=== PATIENT | male | born 1960 | race Caucasian/White ===

== ENCOUNTER 2016-06-28 08:36 | Emergency (ER) | payer OTHER ==
[~2016-06-28] VITALS: Ht 177.8 cm; Wt 118.0 kg
[2016-06-28] MEDS ORDERED: SODIUM CHLORIDE 0.9% 1,000 ML IV ONE (09:13)
[2016-06-28] MEDS ORDERED: SODIUM CHLORIDE FLUSH 10ML SYR IVF ONE (09:30)
[2016-06-28 09:38] LABS: HEMOGLOBIN 14.9 g/dL (13.7-18.0)
[2016-06-28] MEDS ORDERED: OMNIPAQUE 350 MG/ML, 150 ML BOTTLE ONE (10:21)
[2016-06-28 11:31] VITALS: BP 148/79
== END 2016-06-28 11:34 | disposition home or self-care (01) ==
LOC: ED 11:15
DX: K61.1 Rectal abscess (principal); M54.9 Dorsalgia, unspecified; G89.29 Other chronic pain
CPT/HCPCS: 36415; 74177; 80047; 81003; 83605; 85025; 96360; 96361; 99285; J7030; Q9967

== ENCOUNTER → 2016-07-20 | Outpatient (CLI) | payer OTHER ==
[~2016-07-20] MED LIST: FAMO20TA7 PO; LORA10TA3 PO
== END | disposition home or self-care (01) ==
LOC: STAR 08:08
PROVIDERS: ATTEND Surgery
DX: Z01.810 Encounter for preprocedural cardiovascular examination (principal)
CPT/HCPCS: 93005

== ENCOUNTER 2016-07-24 08:16 | Day surgery (SDC) | payer OTHER ==
[~2016-07-24] VITALS: Ht 177.8 cm; Wt 118.0 kg
[~2016-07-24 08:16] MED LIST changes: +FENTANYL PF 250 MCG/5ML ONE; +MIDAZOLAM 1 MG/ML, 2ML ONE
[2016-07-24] MEDS ORDERED: LACTATED RINGERS 1,000 ML IV SCH (08:41)
[2016-07-24 08:42] VITALS: BP 131/86
[2016-07-24] MEDS ORDERED: LIDOCAINE 1%, 2ML SQ PRN (09:00)
[2016-07-24] MEDS ORDERED: BUPIVACAINE/PF-EPI 0.5% 1:200K ONE (09:38)
[2016-07-24] MEDS ORDERED: GLYCOPYRROLATE 0.2MG/1ML ONE (09:46)
[2016-07-24] MEDS ORDERED: NEOSTIGMINE 1 MG/ML, 10ML ONE (09:46)
[2016-07-24] MEDS ORDERED: DEXAMETHASONE 4 MG/ML, 1ML ONE (09:46)
[2016-07-24] MEDS ORDERED: ROCURONIUM 10 MG/ML ONE (09:46)
[2016-07-24] MEDS ORDERED: PROPOFOL 10 MG/ML, 20ML ONE (09:46)
[2016-07-24] MEDS ORDERED: CEFAZOLIN 1,000 MG ONE (09:46)
[2016-07-24] MEDS ORDERED: KETOROLAC 30 MG/1 ML ONE (09:46)
[2016-07-24] MEDS ORDERED: ONDANSETRON 2MG/ML, 2ML ONE (09:46)
[2016-07-24] MEDS ORDERED: SUCCINYLCHOLINE 20 MG/ML, 10ML ONE (09:46)
[2016-07-24] MEDS ORDERED: BUPIVACAINE/PF-EPI 0.5% 1:200K INFIL ONE (10:17)
[2016-07-24] MEDS ORDERED: OXYcodone 5 MG/5 ML ORAL.SOL UDC PO PRN (10:30)
[2016-07-24] MEDS ORDERED: HYDROcodone/APAP 7.5-325MG/15ML UDC PO PRN (10:30)
[2016-07-24] MEDS ORDERED: MIDAZOLAM 1 MG/ML, 2ML IV PRN (10:30)
[2016-07-24] MEDS ORDERED: ONDANSETRON 2MG/ML, 2ML IVPush PRN (10:30)
[2016-07-24] MEDS ORDERED: PROMETHAZINE 25 MG/ML, 1ML IV PRN (10:30)
[2016-07-24] MEDS ORDERED: ACETAMINOPHEN 325 MG TABLET PO PRN (10:30)
[2016-07-24] MEDS ORDERED: MEPERIDINE/PF 25MG/0.5ML IVPush PRN (10:30)
[2016-07-24] MEDS ORDERED: FENTANYL PF 100 MCG/2ML ONE ×3 (10:49→11:38)
[2016-07-24] MEDS ORDERED: OXYcodone 5 MG/5 ML ORAL.SOL UDC ONE (11:07)
[2016-07-24] MEDS ORDERED: HYDROmorphone 2 MG/ML, 1ML ONE (11:07)
[2016-07-24] MEDS: FENTANYL PF 100 MCG/2ML IV PRN ×4 (11:10→11:50)
[2016-07-24] MEDS: HYDROmorphone 1 MG/ML, 1ML IV PRN ×4 (11:18→11:37)
[2016-07-24] MEDS ORDERED: HYDROcodone/APAP 5/325 TABLET PO ONE (16:00)
== END 2016-07-24 16:00 | disposition home or self-care (01) ==
LOC: OUT 08:16
PROVIDERS: ATTEND Surgery
DX: K43.6 Other and unspecified ventral hernia with obstruction, without gangrene (principal); K21.9 Gastro-esophageal reflux disease without esophagitis; E66.9 Obesity, unspecified; Z68.37 Body mass index [BMI] 37.0-37.9, adult; Z88.0 Allergy status to penicillin; Z91.012 Allergy to eggs; Z91.011 Allergy to milk products; Z72.89 Other problems related to lifestyle; Z87.891 Personal history of nicotine dependence; Z80.0 Family history of malignant neoplasm of digestive organs
CPT/HCPCS: 49653; C1781; J0330; J0690; J1100; J1170; J1885; J2250; J2405; J2704; J2710; J3010; J7120; J3490